=== PATIENT | male | born 1930 | race Caucasian/White ===

== ENCOUNTER 2016-08-29 13:07 | Emergency (ER) | payer OTHER ==
[~2016-08-29 13:07] MED LIST: ABILIFY2 MG PO; ARMOUR THYROID15 MG PO; ASPIR-LOW81 MG PO; ATORVASTATIN CA40 MG PO; COREG3.125 MG PO; FLOMAX 0.4 MG0.4 MG PO; INVOKANA300 MG PO; KLONOPIN TAB 00.5 MG PO; LEVAQUIN500 MG PO; LOSARTAN POTASS50 MG PO; METFORMIN HCL500 MG PO; PLAVIX 75 MG TA75 MG PO; PROTONIX40 MG PO; TYLENOL W/CODEIN1 E1 PO; VIIBRYD40 MG PO; VITAMIN D1000 UNI1 PO; ZYRTEC10 M3 PO
[2016-08-29 14:36] LABS: HEMOGLOBIN 11.9 gm/dl (14.0-17.5); RED BLOOD COUNT 4.39 M/UL (4.20-5.50); WHITE BLOOD COUNT 4.7 K/UL (4.5-11.0)
[2016-08-29 14:47] LABS: BUN/CREATININE RATIO 17 (0-10)
== END 2016-08-29 15:30 | disposition home or self-care (01) ==
LOC: ER1 13:07
PROVIDERS: Emergency Medicine
DX: R04.0 Epistaxis (principal); D64.9 Anemia, unspecified; E11.9 Type 2 diabetes mellitus without complications; I25.810 Atherosclerosis of coronary artery bypass graft(s) without angina pectoris; Z79.02 Long term (current) use of antithrombotics/antiplatelets; Z95.810 Presence of automatic (implantable) cardiac defibrillator; Z79.82 Long term (current) use of aspirin; Z79.84 Long term (current) use of oral hypoglycemic drugs; Z79.899 Other long term (current) drug therapy; Z88.0 Allergy status to penicillin; Z88.8 Allergy status to other drugs, medicaments and biological substances; Z95.1 Presence of aortocoronary bypass graft
CPT/HCPCS: 36415; 80053; 85025; 85610; 85730; 99283